=== PATIENT | female | born 1995 | race Caucasian/White ===

== ENCOUNTER 2020-09-10 10:14 | Emergency (ER) | payer MEDICAID ==
[~2020-09-10] VITALS: Ht 167.6 cm; Wt 95.8 kg
[2020-09-10] MEDS ORDERED: DIAZ5TAB PO (11:00)
[2020-09-10 11:45] VITALS: BP 143/99
== END 2020-09-10 12:13 | disposition home or self-care (01) ==
LOC: ER 10:15
DX: S39.012A Strain of muscle, fascia and tendon of lower back, initial encounter (principal); Z79.899 Other long term (current) drug therapy; X58.XXXA Exposure to other specified factors, initial encounter; Y93.89 Activity, other specified; Y92.89 Other specified places as the place of occurrence of the external cause; Y99.8 Other external cause status
CPT/HCPCS: 99283